=== PATIENT | male | born 1955 | race Caucasian/White ===

== ENCOUNTER → 2017-01-05 | Outpatient (CLI) | payer BC ==
[~2017-01-05] MED LIST: ADULT LOW DOSE81 MG PO; ADVAIR 500-501 EACH INH; BENZONATATE200 MG PO; DALIRESP 500500 MCG PO; FLOMAX 0.4 MG0.4 MG PO; KLONOPIN TAB 00.5 MG PO; NEURONTIN 400400 MG PO; NORCO 7.5-3251 EACH PO; NORVASC 5 MG TAB5 MG PO; PLAVIX 75 MG TA75 MG PO; PREDNISONE 10 M10 MG PO; PROVENTIL HFA 61 INH INH; SIMVASTATIN20 MG PO; SINGULAIR10 MG PO; SPIRIVA HANDIH18 MCG INH; SYNTHROID 25 M25 MCG PO; VALSARTAN-HCTZ1 EAC3 PO; ZANAFLEX 4 MG TA4 MG PO
== END ==
LOC: KOH-I 10:15
DX: I73.9 Peripheral vascular disease, unspecified (principal); R93.6 Abnormal findings on diagnostic imaging of limbs
CPT/HCPCS: 93925

== ENCOUNTER → 2017-01-29 | Outpatient (CLI) | payer BC | LOC: KOH-I 01-22 08:14 → CT 01-25 15:00 → KOH-I 08:55 | DX: I77.77 Dissection of artery of lower extremity (principal); I70.8 Atherosclerosis of other arteries; I77.89 Other specified disorders of arteries and arterioles; I77.4 Celiac artery compression syndrome; K80.50 Calculus of bile duct without cholangitis or cholecystitis without obstruction | CPT/HCPCS: 73706; Q9963 ==

== ENCOUNTER 2017-02-20 13:56 | Observation (INO) | payer BC ==
[~2017-02-20] VITALS: Ht 172.7 cm; Wt 75.8 kg
[2017-02-20] MEDS ORDERED: NEURONTIN 400400 MG PO (15:31)
[2017-02-20] MEDS ORDERED: NORCO 7.5-3251 EACH PO (15:32)
[2017-02-20] MEDS ORDERED: KLONOPIN TAB 00.5 MG PO (15:32)
[2017-02-20] MEDS ORDERED: FLOMAX 0.4 MG0.4 MG PO (15:36)
[2017-02-20] MEDS ORDERED: ADVAIR 500-501 EACH INH (15:36)
[2017-02-20] MEDS ORDERED: BENZONATATE200 MG PO (15:38)
[2017-02-20] MEDS ORDERED: SINGULAIR10 MG PO (15:39)
[2017-02-20] MEDS ORDERED: ADULT LOW DOSE81 MG PO (15:39)
[2017-02-20] MEDS ORDERED: SIMVASTATIN20 MG PO (15:40)
[2017-02-20] MEDS ORDERED: DALIRESP 500500 MCG PO (15:41)
[2017-02-20] MEDS ORDERED: VALSARTAN-HCTZ1 EAC3 PO (15:42)
[2017-02-20] MEDS ORDERED: ZANAFLEX 4 MG TA4 MG PO (15:42)
[2017-02-20] MEDS ORDERED: SYNTHROID 25 M25 MCG PO (15:43)
[2017-02-20] MEDS ORDERED: SPIRIVA HANDIH18 MCG INH (15:44)
[2017-02-20] MEDS ORDERED: PREDNISONE 10 M10 MG PO (15:45)
[2017-02-20] MEDS ORDERED: PROVENTIL HFA 61 INH INH (15:50)
[2017-02-20 16:08] LABS: HEMOGLOBIN 14.8 gm/dl (14.0-17.5); RED BLOOD COUNT 4.65 M/UL (4.20-5.50); WHITE BLOOD COUNT 8.3 K/UL (4.5-11.0)
[2017-02-20 16:23] LABS: BUN/CREATININE RATIO 10 (0-10)
[2017-02-21 03:39] LABS: HEMOGLOBIN 13.3 gm/dl (14.0-17.5); RED BLOOD COUNT 4.22 M/UL (4.20-5.50); WHITE BLOOD COUNT 7.2 K/UL (4.5-11.0)
[2017-02-21 03:52] LABS: BUN/CREATININE RATIO 18 (0-10)
[2017-02-21] MEDS ORDERED: NORVASC 5 MG TAB5 MG PO (15:54)
== END 2017-02-21 18:28 | disposition home or self-care (01) ==
LOC: PROG CARE 13:56
PROVIDERS: Physician Assistant; ADMIT Emergency Medicine
DX: E87.1 Hypo-osmolality and hyponatremia (principal); T50.2X5A Adverse effect of carbonic-anhydrase inhibitors, benzothiadiazides and other diuretics, initial encounter; J44.9 Chronic obstructive pulmonary disease, unspecified; I73.9 Peripheral vascular disease, unspecified; E87.6 Hypokalemia; E83.42 Hypomagnesemia; I10 Essential (primary) hypertension; E03.9 Hypothyroidism, unspecified; N40.0 Benign prostatic hyperplasia without lower urinary tract symptoms; E78.5 Hyperlipidemia, unspecified; F17.210 Nicotine dependence, cigarettes, uncomplicated; Z79.82 Long term (current) use of aspirin; Z79.891 Long term (current) use of opiate analgesic; Z79.899 Other long term (current) drug therapy
CPT/HCPCS: ECHO; 36415; 71250; 80048; 80053; 82436; 83735; 84133; 84295; 84300; 84439; 84443; 85025; 87086; 93005; 93306; 94640; 94664; G0378; G0379; J7030

== ENCOUNTER 2017-02-23 07:33 | Outpatient (CLI) | payer BC ==
[~2017-02-23] VITALS: Ht 172.7 cm; Wt 78.0 kg
[~2017-02-23 07:33] MED LIST changes: -PLAVIX 75 MG TA75 MG PO
[2017-02-23 08:17] LABS: HEMOGLOBIN 13.8 gm/dl (14.0-17.5); RED BLOOD COUNT 4.34 M/UL (4.20-5.50); WHITE BLOOD COUNT 8.8 K/UL (4.5-11.0)
[2017-02-23 08:25] LABS: BUN/CREATININE RATIO 7 (0-10)
--- NOTE | 2017-02-23 13:11 | NUR ---
02/23/17 1230 RECEIVED FROM [facility] PER STRETCHER. GROIN CHECKS WNL. NS AT 150ML/HR 1310 LORTAB 7.5MG GIVEN AND XANAX 0.25 GIVEN FOR C/O PAIN AND UNABLE TO LAY FLAT. FAMILY AT BEDSIDE.
[2017-02-23 20:50] LABS: BUN/CREATININE RATIO 10 (0-10)
[2017-02-23 20:52] LABS: HEMOGLOBIN 12.4 gm/dl (14.0-17.5); RED BLOOD COUNT 3.9 M/UL (4.20-5.50); WHITE BLOOD COUNT 9.8 K/UL (4.5-11.0)
[2017-02-24 04:13] LABS: HEMOGLOBIN 12.3 gm/dl (14.0-17.5); RED BLOOD COUNT 3.89 M/UL (4.20-5.50); WHITE BLOOD COUNT 9.3 K/UL (4.5-11.0)
[2017-02-24 04:33] LABS: BUN/CREATININE RATIO 7 (0-10)
[2017-02-24] MEDS ORDERED: PLAVIX 75 MG TA75 MG PO (12:26)
== END 2017-02-24 12:00 | disposition home or self-care (01) ==
LOC: CATH 07:33 → PROG CARE 13:01 → CATH 13:01 → PROG CARE 02-24 12:00 → CATH 02-24 12:00
PROVIDERS: Internal Medicine
DX: I73.9 Peripheral vascular disease, unspecified (principal); I25.119 Atherosclerotic heart disease of native coronary artery with unspecified angina pectoris; I11.9 Hypertensive heart disease without heart failure; J44.9 Chronic obstructive pulmonary disease, unspecified; J45.909 Unspecified asthma, uncomplicated; E78.5 Hyperlipidemia, unspecified; E03.9 Hypothyroidism, unspecified; G62.9 Polyneuropathy, unspecified; R06.02 Shortness of breath; G47.9 Sleep disorder, unspecified; Z72.0 Tobacco use; Z98.890 Other specified postprocedural states; Z79.52 Long term (current) use of systemic steroids; Z79.899 Other long term (current) drug therapy
CPT/HCPCS: 36200; 36415; 75630; 80048; 85025; 85027; 85347; 85610; 85730; 94664; C1725; C1769; C1876; C1887; J1644; J2250; J3010; J7030; Q9965